=== PATIENT | female | born 1935 | race Caucasian/White ===

== ENCOUNTER 2017-02-13 10:23 | Outpatient (CLI) | payer MEDICARE ==
--- NOTE | 2017-02-13 17:11 | ULT ---
RENAL ULTRASOUND: History: Hematuria. History of bladder cancer. Comparison: None. Technique: Sagittal and transverse images of the kidneys performed. FINDINGS: Bilaterally no hydronephrosis. No renal calculi. Right kidney measures 8.9 x 4.3 x 5.5 cm. Left kidney measures 9.2 x 4.5 x 4.0 cm. Bladder mucosa is unremarkable. Pre void volume is 114 cubic/cm. IMPRESSION: No evidence of hydronephrosis. POS: [facility]
== END 2017-02-13 10:24 | disposition home or self-care (01) ==
LOC: ULT 10:23
PROVIDERS: ATTEND Urology
DX: R31.29 Other microscopic hematuria (principal)
CPT/HCPCS: 76770

== ENCOUNTER 2017-06-05 10:36 | Outpatient (CLI) | payer MEDICARE | END 2017-06-05 10:37 | disposition home or self-care (01) | LOC: BICMAMMO 10:36 | PROVIDERS: ATTEND Obstetrics & Gynecology | DX: Z12.31 Encounter for screening mammogram for malignant neoplasm of breast (principal) | CPT/HCPCS: 77063; 77067 ==

== ENCOUNTER 2017-12-26 08:56 | Outpatient (CLI) | payer MEDICARE ==
--- NOTE | 2017-12-26 10:13 | RAD ---
RIGHT LEG TWO VIEWS SERIES: History: Fall with injury and pain. FINDINGS: There is no fracture or dislocation. Incidental degenerative changes are seen. IMPRESSION: No acute fracture or dislocation of the right leg osseous structures. POS: [facility]
--- NOTE | 2017-12-26 10:26 | RAD ---
RIGHT HIP TWO VIEWS SERIES: Indication: Pain, recent fall. Injury. Comparison: 05-16-13 FINDINGS: There is mild to moderate osteoarthritis of the right hip without fracture or dislocation. IMPRESSION: No acute osseous abnormality of the right hip. POS: [facility]
--- NOTE | 2017-12-26 10:30 | RAD ---
RIGHT KNEE FOUR VIEWS: INDICATIONS: Injury. Pain. Recent fall. FINDINGS: There is no fracture or dislocation. No joint capsular distention. Chondrocalcinosis is noted. IMPRESSION: 1. No acute fracture or dislocation, right knee. 2. Evidence of calcium pyrophosphate deposition disease. POS: [facility]
== END 2017-12-26 08:57 | disposition home or self-care (01) ==
LOC: TBSIIMAG 08:56
PROVIDERS: ATTEND Neurological Surgery
DX: M79.604 Pain in right leg (principal); M11.261 Other chondrocalcinosis, right knee

== ENCOUNTER 2017-12-27 10:02 | Outpatient (CLI) | payer MEDICARE ==
--- NOTE | 2017-12-27 13:32 | MRI ---
MRI CERVICAL SPINE WITH AND WITHOUT CONTRAST: Multiplanar, multisequential imaging cervical spine obtained. Postcontrast images were obtained afte r administration of 11 cc MultiHance IV. INDICATION: Cervical radiculopathy. COMPARISON: Comparison is made to CT cervical spine 02/16/2016. FINDINGS: Posterior cerclage wires transfix the posterior elements at C1, C2, and C3. There is an old displace d odontoid fracture again noted which was described on the prior CT. The tip of the odontoid is disp laced posteriorly. There is partial fusion at C2-3. There is mild wedging of C5-C6 vertebra. Loss of disk space at all levels. Mild anterolisthesis at C4-5. Posterior listhesis at C6-C7. Prominent spondylitic change posteriorly. Partial fusion of C2-3 with no evidence of encroachment on the spinal canal. At C3-4, mild loss of disk space ;however, no disk bulge or spondylosis and generous anterior subarac hnoid space. At C4-5, posterior disk bulge and spondylosis efface the anterior subarachnoid space. Bilateral fora eder encroachment due to facet and uncinate hypertrophy. At C5-6, posterior disk bulge with spondylosis that is prominent. These changes impinge on and marilyn en the cord. Hypertrophic changes in the posterior canal impinge on the posterior cord. Moderate ce ntral canal stenosis with cord impingement is present. Bilateral foraminal stenosis. At C6-7, posterior subluxation combined with disk bulge and spondylosis impinge on the cord. Modera te central canal stenosis. Bilateral foraminal stenosis. At C7-T1: Slight anterolisthesis with spondylosis effacing the anterior subarachnoid space. Left fo raminal stenosis. No evidence of myelomalacia identified within the cord. IMPRESSION: 1. Old displaced odontoid fracture. Prior surgical changes at C1, C2, and C3 as described. 2. Severe spondylosis at C4-5, C5-6, and C6-7. Cord impingement is most pronounced at C5-6 and C6-7 . POS: [facility]
--- NOTE | 2017-12-27 14:29 | MRI ---
MRI LUMBAR SPINE WITH AND WITHOUT CONTRAST: DATE: 12/27/2017. HISTORY: An 82-year-old female with lumbar radiculopathy. COMPARISON: 10/13/2014. TECHNIQUE: Multiple sequences obtained in axial and sagittal planes, pre and post IV injection of gadolinium-bas ed contrast agent: 11 mL of MultiHance. FINDINGS: No vertebral body collapse. No abnormal intramedullary, extramedullary-intradural, or extradural, en hancement identified. Broad-based disk bulge-osteophytic bar complexes protrude into the anterior as pect of the spinal canal at all visualized levels, from T10-11 through L5-S1. Disk space narrowing a t all levels, which is mild at L1-2, moderate to severe at L4-5, and severe at all other levels. Mod ic-type II end plate marrow changes at T10-11, Modic type I at T11-12, and mixed Modic changes, predo minantly type I, at L5-S1. Heterogeneous bone marrow signal throughout all levels, consistent with s enescent marrow changes. Baastrup's changes throughout all visualized levels (degenerative changes b etween hypertrophic, kissing spinous processes). Thickened ligamentum flavum and degenerative facet hypertrophy encroach upon the posterior aspect of the spinal canal at all levels, to varying degrees. T10-11: Mild central stenosis. Mild to moderate right neural foraminal stenosis. Severe left neura l foraminal stenosis. No major interval change. T11-12: Mild to moderate central stenosis. Mild right neural foraminal stenosis. Moderate to sever e left neural foraminal stenosis. No major interval change. T12-L1: mild to moderate central stenosis. No high-grade neural foraminal stenosis. No interval ch alayna. L1-2: Conus medullaris terminates at lower L1. Mild central stenosis. No bony neural foraminal aisha nosis. 0.6 cm right neural foraminal nerve root sleeve cyst. No interval change. L2-3: Moderate to severe central spinal canal stenosis with trefoil configuration. Mild bilateral n eural foraminal stenosis. No major interval change. L3-4: Moderate to severe central canal stenosis (less severe than at L2-3), with trefoil configurati on. Mild bilateral neural foraminal stenosis. L4-5: The bilateral moderate degenerative facet disease causes a grade I anterolisthesis of L4 on L5 . Moderate to severe central stenosis and significant lateral recess stenosis bilaterally. Mild to moderate right neural foraminal stenosis and moderate left neural foraminal stenosis. No major inter katie change. L5-S1: Again noted is the central and bilateral paracentral (asymmetrically larger on the right side ) focal small-moderate sized extruded disk herniation which chronically impinges on the bilateral S1 nerve roots, right greater than left, and contributes to moderate central spinal canal stenosis and h igh-grade lateral recess stenosis bilaterally. No significant right neural foraminal stenosis. Mode rate left neural foraminal stenosis, with the left lateral component of broad-based disk bulge-osteop hytic bar complex chronically indenting the ventral surface of the exiting left L5 nerve root. No hi gh-grade bilateral degenerative facet changes. IMPRESSION: 1. Lumbar spondylosis, with multilevel high-grade degenerative disk disease. 2. High-grade (moderate to severe) central spinal canal stenosis at L2-3, L3-4, L4-5, and L5-S1. 3. Lateral recess stenosis at those levels, especially at L5-S1, where there is chronic impingement on bilateral S1 nerve roots. 4. Mild grade I anterolisthesis of L4 on L5 due to high-grade facet osteoarthrosis. 5. No major interval change since 10/11/2014. ALFNOSO Leung POS: [facility]
== END 2017-12-27 10:03 | disposition home or self-care (01) ==
LOC: MRI 10:02
PROVIDERS: ATTEND Neurological Surgery
DX: M51.16 Intervertebral disc disorders with radiculopathy, lumbar region (principal); M47.26 Other spondylosis with radiculopathy, lumbar region; M48.061 Spinal stenosis, lumbar region without neurogenic claudication; M48.07 Spinal stenosis, lumbosacral region; M43.16 Spondylolisthesis, lumbar region; M47.22 Other spondylosis with radiculopathy, cervical region; Z98.890 Other specified postprocedural states; Z87.81 Personal history of (healed) traumatic fracture
CPT/HCPCS: 72156; 72158

== ENCOUNTER 2021-01-07 12:35 | Outpatient (CLI) | payer MEDICARE | END 2021-01-07 12:36 | disposition home or self-care (01) | LOC: BICMRI 12:35 | PROVIDERS: ATTEND Neurological Surgery | DX: M54.2 Cervicalgia (principal); M54.50 Low back pain, unspecified; M47.816 Spondylosis without myelopathy or radiculopathy, lumbar region; M51.36 Other intervertebral disc degeneration, lumbar region; M48.061 Spinal stenosis, lumbar region without neurogenic claudication; M43.16 Spondylolisthesis, lumbar region; M47.812 Spondylosis without myelopathy or radiculopathy, cervical region; M50.321 Other cervical disc degeneration at C4-C5 level; M48.02 Spinal stenosis, cervical region | CPT/HCPCS: 72156; 72158; 82565 ==

== ENCOUNTER 2021-02-10 11:09 | Outpatient (CLI) | payer MEDICARE ==
[2021-02-11 21:05] LABS: SARS-CoV-2 PCR by NAA Not Detected (NotDetected)
== END 2021-02-10 11:10 | disposition home or self-care (01) ==
LOC: LABBT 11:09
PROVIDERS: ATTEND Neurological Surgery
DX: Z01.812 Encounter for preprocedural laboratory examination (principal); G95.9 Disease of spinal cord, unspecified; M48.02 Spinal stenosis, cervical region; Z20.822 Contact with and (suspected) exposure to COVID-19
CPT/HCPCS: U0003; U0005

== ENCOUNTER 2021-02-15 05:33 | Day surgery (SDC) | payer MEDICARE ==
[2021-02-09 11:46] VITALS: BMI 25.4
[2021-02-15] MEDS ORDERED: Thrombin 5000 UNITS/5 ML VIAL ONE (06:09)
[2021-02-15] MEDS ORDERED: Midazolam HCl 2 mg/2 ml Vial ONE (06:25)
[2021-02-15] MEDS ORDERED: Fentanyl 250 MCG/5 ML VIAL ONE (06:25)
[2021-02-15 07:01] LABS: #Basophils 0.1 thou/uL (0.0-0.2); #Eosinphils 0.2 thou/uL (0.0-0.7); #Lymphocytes 2.8 thou/uL (1.20-3.40); #Monocytes 0.8 thou/uL (0.11-0.59); #Neutrophils 4.9 thou/uL (1.40-6.50); %Basophils 0.7 % (0.0-1.0); %Eosinophils 2.5 % (0.0-10.0); %Lymphocytes 31.9 % (21.0-51.0); %Monocytes 8.8 % (0.0-10.0); %Neutrophils 56.1 % (42.0-75.0); Hemoglobin 15.9 g/dL (12.0-16.0); Mean Corpuscular HGB CONC 33.3 g/dL (32.0-36.0); Mean Corpuscular Hemoglobin 32.6 pg (27.0-31.0); Mean Corpuscular Volume 97.9 fL (78.0-98.0); Mean Platelet Volume 7.9 fL (7.4-10.4); Platelet Count 295 thou/uL (130-400); RBC Distribution Width 12.3 % (11.5-14.5); Red Blood Cell (RBC) Count 4.89 mill/uL (4.20-5.40); White Blood Cell (WBC) Count 8.7 thou/uL (4.8-10.8)
[2021-02-15] MEDS ORDERED: PHENYLEPHRINE-NS 100 MCG/ML 10 ML SYRINGE ONE (07:16)
[2021-02-15] MEDS ORDERED: Lidocaine 1% PF 5 ML VIAL ONE (07:16)
[2021-02-15] MEDS ORDERED: Ondansetron PF 4 MG/2 ML Vial ONE (07:16)
[2021-02-15] MEDS ORDERED: ePHEDrine 50 MG/ML VIAL ONE (07:16)
[2021-02-15] MEDS ORDERED: Glycopyrrolate 0.2 MG/ML 5 ML SYRINGE ONE (07:16)
[2021-02-15] MEDS ORDERED: Rocuronium Bromide 10 MG/ML (10ML VIAL) ONE (07:16)
[2021-02-15] MEDS ORDERED: Dexamethasone 20 MG/5 ML VIAL ONE (07:16)
[2021-02-15 07:17] LABS: Anion Gap 13 mmol/L (10-20); BUN (Urea Nitrogen) 14 mg/dL (9.8-20.1); Calc. Creatinine Clearance 49 mL/min (70-130); Calcium 9.9 mg/dL (7.8-10.44); Carbon Dioxide 30 mmol/L (23-31); Chloride 101 mmol/L (98-107); Glucose 94 mg/dL (83-110); Potassium 4.7 mmol/L (3.5-5.1); Sodium 139 mmol/L (136-145)
[2021-02-15] MEDS ORDERED: Fentanyl 100 MCG/2 ML VIAL ONE (09:38)
[2021-02-15] MEDS ORDERED: ceFAZolin Sodium (SDC) 2 GM/100 ML BAG ONE (11:29)
[2021-02-15] MEDS ORDERED: HYDROcodone/Acetaminophen 5/325 mg Tablet ONE (11:35)
== END 2021-02-15 13:31 | disposition home or self-care (01) ==
LOC: SDC 05:33
PROVIDERS: ATTEND Neurological Surgery
PROC: 0RG20A0 Fusion of 2 or more Cervical Vertebral Joints with Interbody Fusion Device, Anterior Approach, Anterior Column, Open Approach (ICD-10-PCS; principal; 2021-02-15)
DX: M47.12 Other spondylosis with myelopathy, cervical region (principal); M48.02 Spinal stenosis, cervical region; K21.9 Gastro-esophageal reflux disease without esophagitis; K58.9 Irritable bowel syndrome, unspecified; Z79.899 Other long term (current) drug therapy; Z88.6 Allergy status to analgesic agent; Z98.1 Arthrodesis status
CPT/HCPCS: 20930; 20936; 22551; 22552; 22853 ×2; 76000; 80048; 85025; 93005; C1713 ×4; C1776; 93010; J0690; J1100; J2250; J2405; J3010; J3490

== ENCOUNTER 2022-11-24 10:41 | Outpatient (CLI) | payer MEDICARE | END 2022-11-24 10:42 | disposition home or self-care (01) | LOC: RAD 10:41 | PROVIDERS: ATTEND Internal Medicine Gastroenterology | DX: R12 Heartburn (principal); R13.10 Dysphagia, unspecified; R14.3 Flatulence | CPT/HCPCS: 74220 ==